=== PATIENT | male | born 2000 | race Hispanic/Latino ===

== ENCOUNTER 2022-06-07 11:06 | Inpatient (IN) | payer OTHER ==
[2022-06-07] MEDS ORDERED: Ondansetron PF 4 MG/2 ML Vial ONE (11:51)
[2022-06-07 12:00] LABS: Bilirubin Neg (Negative); Blood, Urine 50 (Negative); Clarity Clear (Clear); Glucose, Urine (Dipstick) >=1000 mg/dL (Negative); Ketone, Urine 150 mg/dL (Negative); Leukocyte Negative (Negative); Nitrite Negative (Negative); Protein, Urine (Dipstick) 100 mg/dl (Neg-Trace); Specific Gravity, Urine 1.025 (1.005-1.030); Urobilinogen Normal mg/dL (Less than 2)
[2022-06-07 12:04] LABS: Hemoglobin 19.8 g/dL (13.5-17.5); MDiff Complete? YES; Manual Diff?? YES; Mean Corpuscular HGB CONC 34.3 g/dL (32.0-36.0); Mean Corpuscular Hemoglobin 29.7 pg (27.0-33.0); Mean Corpuscular Volume 86.6 fl (81.2-95.1); Mean Platelet Volume 10.6 fl (7.4-10.4); Platelet Count 477 10x3/uL (150-450); RBC Distribution Width 12.7 % (11.5-14.5); Red Blood Cell (RBC) Count 6.66 10x6/uL (4.32-5.72); White Blood Cell (WBC) Count 20.2 10x3/uL (3.5-10.5)
[2022-06-07 12:06] LABS: Actual Bicarbonate (HCO3v) 6 mEq/L (22-28); Base Excess -24.9 mEq/L (-2 - +2); Calcium, Ionized (venous) 1.26 mmol/L (1.16-1.32); Chloride (VBG) 98 mmol/L (98-106); Hemoglobin (Hb) 21.4 g/dL (13.2-17.3); Potassium (VBG) 4.87 mmol/L (3.70-5.30); Puncture Site Other Site; RapidComm Collect By CBN; Sodium 148.4 mmol/L (133-146); pH (venous) 6.98 (7.32-7.43)
[2022-06-07 12:12] LABS: Bacteria/HPF Rare-Few HPF (None Seen); Mucous/LPF 1+ LPF (<2+); RBC/HPF 0-3 HPF (0-3); Squamous Epithelial 0-3 HPF (0-3); WBC/HPF 0-3 HPF (0-3)
[2022-06-07 12:18] LABS: ALT (SGPT) 11 U/L (8-55); AST (SGOT) 13 U/L (5-34); Alkaline Phosphatase 79 U/L (40-110); BUN (Urea Nitrogen) 12 mg/dL (8.9-20.6); Bilirubin, Total 0.4 mg/dL (0.2-1.2); Calc. Creatinine Clearance 0 mL/min (70-130); Calcium 8.8 mg/dL (7.8-10.44); Chloride 107 mmol/L (98-107); Estimated GFR 63; Globulin 3.7 g/dL (2.4-3.5); Glucose 327 mg/dL (70-105); Lipase 18 U/L (8-78); Potassium 4.9 mmol/L (3.5-5.1); Protein, Total 8.7 g/dL (6.0-8.3); Sodium 136 mmol/L (136-145)
[2022-06-07 12:26] LABS: Carbon Dioxide Less than 8 mmol/L (22-29)
[2022-06-07 12:27] LABS: Band 12 % (5-11); Monocytes 7 % (0-10); Neutrophil 79 % (42-75); Reactive Lymphocytes 2 % (0-10)
[2022-06-07 12:27] LABS: SARS-CoV-2 NAA Rapid Test Not Detected (NotDetected)
[2022-06-07 12:30] LABS: Dohle Bodies SLIGHT; Platelet Morphology Comment Appears Increased; Toxic Granulation SLIGHT; Vacuoles SLIGHT
[2022-06-07] MEDS ORDERED: diphenhydrAMINE 50 MG/ML VIAL ONE (12:34)
[2022-06-07] MEDS ORDERED: Piperacillin/Tazobactam 4.5 GM VIAL ONE (12:34)
[2022-06-07] MEDS ORDERED: Ketorolac Tromethamine 30 MG/ML VIAL ONE (12:34)
[2022-06-07] MEDS ORDERED: Metoclopramide HCl 10 MG/2 ML VIAL ONE (12:34)
[2022-06-07] MEDS ORDERED: Pantoprazole 40 MG VIAL ONE (12:35)
[2022-06-07] MEDS ORDERED: NS 0.9% w/ 20 MEQ KCL 1,000 ML ONE ×2 (12:56→16:22)
[2022-06-07] MEDS ORDERED: INSULIN REGULAR IN 0.9 % NACL 100 UNIT/100 ML BAG ONE (13:18)
[2022-06-07] MEDS ORDERED: NS 0.9% w/ 20 MEQ KCL 1,000 ML IV PRN ×2 (14:09)
[2022-06-07] MEDS ORDERED: Sodium Chloride 0.9% 1,000 ML IV PRN ×4 (14:09)
[2022-06-07] MEDS ORDERED: Dextrose 5 %-0.45 % NaCl 1,000 ML IV PRN (14:09)
[2022-06-07] MEDS ORDERED: Electrolyte Replacement Protocol IVPB PRN (14:09)
[2022-06-07] MEDS ORDERED: Dextrose 50% Abboject 50 ML SYRINGE SLOW IVP PRN (14:09)
[2022-06-07] MEDS ORDERED: Calcium Carbonate 500 MG ChewTAB PO PRN (14:11)
[2022-06-07] MEDS ORDERED: Ondansetron PF 4 MG/2 ML Vial IVP PRN (14:11)
[2022-06-07] MEDS ORDERED: Ondansetron ODT 4 MG TAB PO PRN (14:11)
[2022-06-07] MEDS ORDERED: Iopamidol 300 61% 100 ML VIAL FS ONE (14:23)
[2022-06-07 14:38] LABS: BUN (Urea Nitrogen) 10 mg/dL (8.9-20.6); Calc. Creatinine Clearance 0 mL/min (70-130); Calcium 8.2 mg/dL (7.8-10.44); Chloride 111 mmol/L (98-107); Estimated GFR 76; Glucose 290 mg/dL (70-105); Potassium 4.7 mmol/L (3.5-5.1); Sodium 135 mmol/L (136-145)
[2022-06-07 14:45] LABS: Carbon Dioxide Less than 8 mmol/L (22-29)
[2022-06-07 14:53] LABS: Phosphorus 3.5 mg/dL (2.3-4.7)
[2022-06-07 15:51] LABS: Lactic Acid 1.8 mmol/L (0.5-2.2)
[2022-06-07 18:30] LABS: BUN (Urea Nitrogen) 8 mg/dL (8.9-20.6); Calc. Creatinine Clearance 0 mL/min (70-130); Calcium 7.7 mg/dL (7.8-10.44); Chloride 116 mmol/L (98-107); Estimated GFR 85; Glucose 241 mg/dL (70-105); Potassium 4.5 mmol/L (3.5-5.1); Sodium 134 mmol/L (136-145)
[2022-06-07 18:34] LABS: Carbon Dioxide Less than 8 mmol/L (22-29)
[2022-06-07 19:45] VITALS: BMI 21.8
[2022-06-07] MEDS: D5 1/2 NS w/20 mEq KCL 1,000 ML IV PRN (20:14)
[2022-06-07] MEDS ORDERED: INSULIN REGULAR IN 0.9 % NACL 100 UNIT in Premix Bag 1 BAG IVPB SCH (20:15)
[2022-06-07 20:34] LABS: Hemoglobin A1c 9.9 % (4.0-6.0)
[2022-06-07 20:51] VITALS: TEMP 98.6
[2022-06-07] MEDS ORDERED: Famotidine/PF 20 mg/2ml Vial SLOW IVP SCH (21:00)
[2022-06-07] MEDS: Polyethylene Glycol 3350 17 GM Packet PO SCH (21:00)
[2022-06-07] MEDS: Senokot S 8.6-50 MG TAB PO SCH (21:00)
[2022-06-07] MEDS ORDERED: Famotidine 20 MG TAB PO SCH (21:00)
[2022-06-07] MEDS: Bisacodyl 10 MG SUPP PR SCH (21:01)
[2022-06-07] MEDS: Pantoprazole 40 MG VIAL IVP SCH (21:01)
[2022-06-07] MEDS: Metoclopramide HCl 10 MG/2 ML VIAL IVP SCH (21:01)
[2022-06-07 22:45] LABS: Anion Gap 12 mmol/L (10-20); BUN (Urea Nitrogen) 6 mg/dL (8.9-20.6); Calc. Creatinine Clearance 88 mL/min (70-130); Calcium 7.9 mg/dL (7.8-10.44); Carbon Dioxide 12 mmol/L (22-29); Chloride 115 mmol/L (98-107); Estimated GFR 86; Glucose 258 mg/dL (70-105); Potassium 3.6 mmol/L (3.5-5.1); Sodium 135 mmol/L (136-145)
[2022-06-08] MEDS: D5 1/2 NS w/20 mEq KCL 1,000 ML IV PRN (00:07)
[2022-06-08 02:39] LABS: Anion Gap 10 mmol/L (10-20); BUN (Urea Nitrogen) 5 mg/dL (8.9-20.6); Calc. Creatinine Clearance 101 mL/min (70-130); Carbon Dioxide 13 mmol/L (22-29); Chloride 115 mmol/L (98-107); Estimated GFR 102; Glucose 153 mg/dL (70-105); Potassium 3.2 mmol/L (3.5-5.1); Sodium 135 mmol/L (136-145)
[2022-06-08] MEDS: Metoclopramide HCl 10 MG/2 ML VIAL IVP SCH ×2 (03:31→09:35)
[2022-06-08] MEDS ORDERED: Dextrose 5% in Water 1,000 ML IV PRN (03:44)
[2022-06-08] MEDS ORDERED: HumaLOG 300 UNITS/3 ML VIAL SC PRN (03:44)
[2022-06-08] MEDS ORDERED: Dextrose 50% Abboject 50 ML SYRINGE SLOW IVP PRN (03:44)
[2022-06-08] MEDS: Potassium Chloride 20 MEQ in Premix Bag 1 BAG IVPB SCH ×2 (06:01→07:47)
[2022-06-08 06:31] LABS: Lactic Acid 0.6 mmol/L (0.5-2.2)
[2022-06-08 06:45] LABS: ALT (SGPT) 10 U/L (8-55); AST (SGOT) 10 U/L (5-34); Albumin 3.4 g/dL (3.5-5.0); Alkaline Phosphatase 53 U/L (40-110); Anion Gap 15 mmol/L (10-20); BUN (Urea Nitrogen) 5 mg/dL (8.9-20.6); Calc. Creatinine Clearance 93 mL/min (70-130); Calcium 8.3 mg/dL (7.8-10.44); Carbon Dioxide 10 mmol/L (22-29); Chloride 115 mmol/L (98-107); Estimated GFR 93; Globulin 2.3 g/dL (2.4-3.5); Glucose 195 mg/dL (70-105); Magnesium 1.7 mg/dL (1.6-2.6); Phosphorus 1.5 mg/dL (2.3-4.7); Potassium 3.6 mmol/L (3.5-5.1); Protein, Total 5.7 g/dL (6.0-8.3); Sodium 136 mmol/L (136-145)
[2022-06-08] MEDS ORDERED: PHOS-NAK 1 PKT PACK PO SCH (08:00)
[2022-06-08] MEDS ORDERED: Magnesium 2 GM/50 ML(in water) 2 GM in Premix Bag 1 BAG IVPB SCH (08:00)
[2022-06-08] MEDS: Pantoprazole 40 MG VIAL IVP SCH (09:37)
[2022-06-08] MEDS: Polyethylene Glycol 3350 17 GM Packet PO SCH ×2 (09:38→20:54)
[2022-06-08] MEDS: Senokot S 8.6-50 MG TAB PO SCH ×2 (09:38→20:54)
[2022-06-08] MEDS: Acetaminophen 325 MG TAB PO PRN ×2 (09:50→22:00)
[2022-06-08 10:23] LABS: #Basophils 0.1 10x3/uL (0.0-0.2); #Eosinphils 0.1 10x3/uL (0.0-0.5); #Monocytes 0.8 10x3/uL (0.0-1.1); #Neutrophils 5.1 10x3/uL (1.5-8.4); %Basophils 0.7 % (0.0-2.0); %Eosinophils 1.1 % (0.0-6.0); %Monocytes 10.4 % (0.0-10.0); %Neutrophils 69.4 % (40.0-75.0); Hemoglobin 15.6 g/dL (13.5-17.5); Mean Corpuscular HGB CONC 35.6 g/dL (32.0-36.0); Mean Corpuscular Hemoglobin 29.8 pg (27.0-33.0); Mean Corpuscular Volume 83.7 fl (81.2-95.1); Mean Platelet Volume 10.4 fl (7.4-10.4); Platelet Count 299 10x3/uL (150-450); RBC Distribution Width 12.9 % (11.5-14.5); Red Blood Cell (RBC) Count 5.23 10x6/uL (4.32-5.72); White Blood Cell (WBC) Count 7.4 10x3/uL (3.5-10.5)
[2022-06-08 10:38] LABS: Anion Gap 14 mmol/L (10-20); BUN (Urea Nitrogen) 5 mg/dL (8.9-20.6); Calc. Creatinine Clearance 102 mL/min (70-130); Calcium 8.1 mg/dL (7.8-10.44); Carbon Dioxide 11 mmol/L (22-29); Chloride 112 mmol/L (98-107); Estimated GFR 103; Glucose 327 mg/dL (70-105); Potassium 3.9 mmol/L (3.5-5.1); Sodium 133 mmol/L (136-145)
[2022-06-08] MEDS ORDERED: Mag-Al 1200 mg/1200 mg/30 ML UDCUP PO PRN (11:00)
[2022-06-08] MEDS ORDERED: Calcium Carbonate 500 MG ChewTAB PO PRN (11:01)
[2022-06-08] MEDS ORDERED: 1/2 NS w/KCL 20 mEq 1,000 ML IV SCH (11:45)
[2022-06-08] MEDS ORDERED: Insulin NPH Human Isophane 100 UNIT/ML (10 ML VIAL) SC SCH (12:00)
[2022-06-08] MEDS: HumaLOG 300 UNITS/3 ML VIAL SC PRN ×4 (12:12→23:43)
[2022-06-08] MEDS: Sodium Bicarbonate Tab 325 MG TAB PO SCH ×2 (12:15→16:11)
[2022-06-08 14:22] VITALS: BP 106/63
[2022-06-08] MEDS: 1/2 NS w/KCL 20 mEq 1,000 ML IV SCH ×2 (15:43→21:18)
[2022-06-08 15:56] LABS: Anion Gap 13 mmol/L (10-20); BUN (Urea Nitrogen) 6 mg/dL (8.9-20.6); Calc. Creatinine Clearance 105 mL/min (70-130); Calcium 8.1 mg/dL (7.8-10.44); Carbon Dioxide 16 mmol/L (22-29); Chloride 111 mmol/L (98-107); Estimated GFR 107; Glucose 268 mg/dL (70-105); Potassium 3.8 mmol/L (3.5-5.1); Sodium 136 mmol/L (136-145)
[2022-06-08] MEDS: PHOS-NAK 1 PKT PACK PO SCH (16:10)
[2022-06-08] MEDS: Insulin NPH Human Isophane 100 UNIT/ML (10 ML VIAL) SC SCH (20:22)
[2022-06-08] MEDS: Bisacodyl 10 MG SUPP PR SCH (20:54)
[2022-06-08] MEDS ORDERED: Polyethylene Glycol 3350 17 GM Packet PO SCH (21:00)
[2022-06-09 05:36] LABS: Anion Gap 11 mmol/L (10-20); BUN (Urea Nitrogen) 6 mg/dL (8.9-20.6); Calc. Creatinine Clearance 154 mL/min (70-130); Carbon Dioxide 20 mmol/L (22-29); Chloride 110 mmol/L (98-107); Estimated GFR 133; Glucose 148 mg/dL (70-105); Magnesium 1.9 mg/dL (1.6-2.6); Phosphorus 2.2 mg/dL (2.3-4.7); Potassium 2.9 mmol/L (3.5-5.1); Sodium 138 mmol/L (136-145)
[2022-06-09] MEDS: Potassium Chloride 20 MEQ TAB PO SCH ×2 (06:21→10:42)
[2022-06-09] MEDS ORDERED: 1/2 NS w/KCL 20 mEq 1,000 ML IV SCH (06:30)
[2022-06-09] MEDS ORDERED: Magnesium 2 GM/50 ML(in water) 2 GM in Premix Bag 1 BAG IVPB SCH (06:30)
[2022-06-09] MEDS: Polyethylene Glycol 3350 17 GM Packet PO SCH (07:32)
[2022-06-09] MEDS: Senokot S 8.6-50 MG TAB PO SCH (07:33)
[2022-06-09] MEDS: PHOS-NAK 1 PKT PACK PO SCH (07:41)
[2022-06-09] MEDS: Insulin NPH Human Isophane 100 UNIT/ML (10 ML VIAL) SC SCH (07:42)
[2022-06-09] MEDS: Sodium Bicarbonate Tab 325 MG TAB PO SCH ×2 (07:42→12:26)
[2022-06-09] MEDS ORDERED: Potassium Chloride 20 MEQ TAB PO SCH (10:45)
[2022-06-09] MEDS: HumaLOG 300 UNITS/3 ML VIAL SC PRN (10:57)
== END 2022-06-09 12:43 | DRG 638 ==
LOC: CSHERS 11:06 → CSHICU 19:27
PROVIDERS: ADMIT Student in an Organized Health Care Education/Training Program; ATTEND Internal Medicine
DX: E11.10 Type 2 diabetes mellitus with ketoacidosis without coma (principal); N17.9 Acute kidney failure, unspecified; E86.0 Dehydration; E87.6 Hypokalemia; E83.42 Hypomagnesemia; E83.39 Other disorders of phosphorus metabolism; K59.00 Constipation, unspecified; Z79.84 Long term (current) use of oral hypoglycemic drugs
CPT/HCPCS: 36415; 36416; 71045; 74019; 74177; 80048; 80053; 81003; 81015; 82010; 82805; 83036; 83605; 83690; 83735; 83930; 84100; 84484; 85025; 87040; 93005; 94760; 94762; C9113; J1200; J1650; J1815; J1885; J2405; J2543; J2765; J3475; J3480; J7030; J7999; Q9967